=== PATIENT | male | born 1990 | race Caucasian/White ===

== ENCOUNTER 2024-02-11 21:30 | Emergency (ER) | payer OTHER, SELFPAY ==
[2024-02-11 21:39] VITALS: BP 131/91; PULSE 80; RESP 18; TEMP 36.9; O2SAT 98; BMI 29.2
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
[2024-02-11] MEDS: ketorolac 60 mg/2 mL INJ IM (23:12)
[2024-02-11] MEDS: tetanus-dipt-pertussis 0.5 mL SDV IM (23:13)
[2024-02-12 00:21] VITALS: RESP 15
== END 2024-02-12 00:22 | disposition home or self-care (01) ==
PROVIDERS: Emergency Provider Physician Assistant
DX: S40.212A Abrasion of left shoulder, initial encounter (principal); S20.412A Abrasion of left back wall of thorax, initial encounter; S90.512A Abrasion, left ankle, initial encounter; V86.63XA Passenger of dune buggy injured in nontraffic accident, initial encounter
CPT/HCPCS: 70450; 72125; 72128; 73030; 73610; 90471; 90715; 96372; 99284; J1885